=== PATIENT | female | born 1935 | race Caucasian/White ===

== ENCOUNTER → 2018-10-05 | Outpatient (CLI) | payer MEDICARE ==
[~2018-10-05] MED LIST: ASPI81TA85 PO; ATEN25TA PO; CYAN100050 PO; SPIR-10 PO
[2018-10-05 13:37] LABS: HEMATOCRIT 43.1 % (36.0-47.0); HEMOGLOBIN 13.9 g/dl (12.0-15.5); MEAN CORPUSCULAR HEMOGLOBIN 29.3 pg (27.0-33.0); MEAN CORPUSCULAR HGB CONC 32.3 g/dl (32.0-36.5); MEAN CORPUSCULAR VOLUME 90.9 fl (80.0-96.0); PLATELET COUNT, AUTOMATED 229 10^3/uL (150-450); RED BLOOD COUNT 4.74 10^6/uL (4.00-5.40); WHITE BLOOD COUNT 8.4 10^3/uL (4.0-10.0)
[2018-10-05 13:40] LABS: ABG BASE EXCESS -4.6 (-2.0-2.0); ABG HCO3 18.2 MEQ/L (22.0-26.0); ABG O2 SATURATION 99.1 % (95.0-99.0); ABG PARTIAL PRESSURE CO2 27.8 mmHg (35.0-45.0); ABG PARTIAL PRESSURE O2 134.9 mmHg (75.0-100.0); ABG STANDARD HCO3 20.8 MEQ/L (22.0-26.0); ABG pH (ARTERIAL) 7.433 UNITS (7.350-7.450)
[2018-10-05 13:47] LABS: INR 1.13; PROTHROMBIN TIME 14.2 SECONDS (11.8-14.0)
[2018-10-05 13:48] LABS: PARTIAL THROMBOPLASTIN TIME 34.9 SECONDS (25.0-38.4)
[2018-10-05 13:56] LABS: CALCIUM LEVEL 9.2 MG/DL (8.8-10.2); CREATININE FOR GFR 1.13 MG/DL (0.55-1.30); GLOMERULAR FILTRATION RATE 49.2 (>32); POTASSIUM SERUM 4.3 MEQ/L (3.5-5.1)
--- NOTE | 2018-10-05 15:14 | REP ---
CHEST X-RAY: Two views. HISTORY: Mediastinoscopy. No comparison imaging. FINDINGS: Left hemidiaphragm is slightly elevated. There is linear fibrosis in the left base above this. The lungs are otherwise well inflated and clear. Pleural angles are sharp. Heart size is normal. There are degenerative changes in the thoracic spine. IMPRESSION: Slightly elevated left hemidiaphragm. Otherwise no acute disease. Electronically Signed by Tomas Singletary MD 10/05/2018 04:39 P
--- NOTE | 2018-10-05 15:51 | ECGEPIP ---
[facility] Test Date: 2018-10-05 Pat Name: ANGELICA FLYNN Department: Room: - Gender: Female Commission Clerk: : [id number] Requested By: Ramirez Catalan Order Number: [id number] Reading MD: Trixie Nix Measurements Intervals [place] Rate: 63 P: PA: -1 QRS: 4 QRSD: 79 T: 266 QT: 425 QTc: 436 Interpretive Statements ATRIAL FIBRILLATION POSSIBLE RIGHT VENTRICULAR CONDUCTION DELAY SEPTAL MYOCARDIAL INFARCTION, PROBABLY OLD MODERATE T-WAVE ABNORMALITY, CONSIDER INFEROLATERAL ISCHEMIA no PRIOR Electronically Signed on 10-05-2018 15:50:49 EDT by Trixie Nix
== END ==
LOC: M ADMPAT 12:57
PROVIDERS: ATTEND Thoracic Surgery (Cardiothoracic Vascular Surgery)
DX: I48.92 Unspecified atrial flutter (principal); Z01.810 Encounter for preprocedural cardiovascular examination

== ENCOUNTER 2018-10-12 06:46 | Day surgery (SDC) | payer MEDICARE ==
[2018-10-05 13:52] VITALS: BP 129/84
[~2018-10-12] VITALS: Ht 167.6 cm; Wt 80.3 kg
[~2018-10-12 06:46] MED LIST changes: +LIDOCAINE 1% MDV 20ML VIAL SQ PRN
[2018-10-12] MEDS ORDERED: MUPIROCIN 2% OINT 22 GM TUBE TOP ONE (07:00)
[2018-10-12] MEDS ORDERED: LR 1,000 ML IV ONE (07:00)
[2018-10-12] MEDS ORDERED: THROMBIN SOLN 20,000 UNITS KIT As Ordered ONE (07:26)
[2018-10-12] MEDS ORDERED: CETACAINE SPRAY 5GM As Ordered ONE (07:27)
[2018-10-12] MEDS ORDERED: EPINEPHrine 1MG/10ML SYRINGE 1.5IN As Ordered ONE (07:27)
[2018-10-12] MEDS ORDERED: BUPIVACAINE LIPOSOME/PF 1.3% 20ML VIAL (13.3MG/ML)(EXPAREL)(C9290 PER1MG) As Ordered ONE (07:27)
[2018-10-12] MEDS ORDERED: METOCLOPRAMIDE INJ 10MG/2ML VIAL (J2765) As Ordered ONE (09:12)
[2018-10-12] MEDS ORDERED: ETOMIDATE INJ 20MG/10ML VIAL As Ordered ONE (09:12)
[2018-10-12] MEDS ORDERED: fentaNYL 100 MCG/2 ML INJECTION (J3010) As Ordered ONE (09:12)
[2018-10-12] MEDS ORDERED: PROPOFOL 200 MG/20 ML VIAL As Ordered ONE (09:12)
[2018-10-12] MEDS ORDERED: SUGAMMADEX SODIUM 500 MG/5 ML VIAL (BRIDION) As Ordered ONE (09:12)
[2018-10-12] MEDS ORDERED: LIDOCAINE 2% INJ 100 MG/5 ML SDV (FOR ANES.) As Ordered ONE (09:12)
[2018-10-12] MEDS ORDERED: dexameTHASONE 4 MG/ML 1ML VIAL (J1100) As Ordered ONE (09:12)
[2018-10-12] MEDS ORDERED: ONDANSETRON 4MG/2ML VIAL (J2405) As Ordered ONE (09:12)
[2018-10-12] MEDS ORDERED: ROCURONIUM BROMIDE 50 MG/5 ML VIAL As Ordered ONE (09:12)
[2018-10-12] MEDS ORDERED: LABETALOL HCL 100 MG/20 ML VIAL As Ordered ONE (09:26)
[2018-10-12] MEDS ORDERED: fentaNYL 100 MCG/2 ML INJECTION (J3010) IV PRN (10:30)
[2018-10-12] MEDS ORDERED: LR 1,000 ML IV SCH (10:30)
[2018-10-12] MEDS ORDERED: oxyCODONE 5MG TAB PO PRN (10:30)
[2018-10-12] MEDS ORDERED: ONDANSETRON 4MG/2ML VIAL (J2405) IV PRN (10:30)
[2018-10-12] MEDS: LABETALOL HCL 100 MG/20 ML VIAL IV PRN ×3 (10:32→11:01)
[2018-10-12] MEDS ORDERED: NORCO, ANEXSIA 5/325MG TABLET (HYDROcodone/ACETAMINOPHEN) PO PRN (11:00)
[2018-10-12 11:01] VITALS: BP 189/88
[2018-10-12 11:50] VITALS: BP 141/76
--- NOTE | 2018-10-13 14:31 | RO ---
DATE OF PROCEDURE: 10/12/2018 PREPROCEDURE DIAGNOSIS: Mediastinal lymphadenopathies. POSTPROCEDURE DIAGNOSIS: Non-necrotizing granulomas against sarcoidosis. PROCEDURE: Mediastinoscopy and bronchoscopy. SURGEON: Ramirez Soto MD DREDGE WORKER: ANESTHESIA: FINDINGS: Bronchoscopy revealed a normal branching tracheobronchial tree. There were scant secretions. There were no intrabronchial lesions. There was no indentation exterior to the trachea. The mediastinoscopy revealed numerous nodes, which one was quite large near the celine bifurcation. This was gently teased out and was removed in toto. Further dissection showed non-necrotizing granulomas. DESCRIPTION OF PROCEDURE: Under satisfactory general anesthesia and single lumen tube endotracheal intubation, the bronchoscope was passed into the tracheobronchial tree. There were no endobronchial lesions seen. Each segment and subsegment were thoroughly inspected. There were scant secretions. The patient was then prepped and draped in the usual sterile fashion and a suprasternal notch incision was made. It was carried down to the subcutaneous tissue and the strap muscles were divided. The trachea could be palpated and the rings felt. A dissecting finger could be placed down the trachea palpating the innominate artery and the arch of the aorta. The scope was inserted and was cleared from the trachea. A rather large node could be seen near the bifurcation and just adjacent to the azygos vein. It was noticed quite mobile and could be gently teased out. As it was I could pull it out and I had pulled out in toto. It was sent for frozen section with the above results. There was one paratracheal vein, which was bleeding and a hemoclip was placed, which stopped the bleeding. The wound was then packed with thrombin and Gelfoam and the strap muscles were reapproximated by use of #3-0 running Vicryl suture as was the subcutaneous tissue, and the skin was closed with running #4-0 Monocryl subcuticular suture. The wound was infiltrated with Exparel. The patient tolerated the procedure well and left the operating room in satisfactory condition for the recovery room.
== END 2018-10-12 12:15 | disposition home or self-care (01) ==
LOC: M SDC 06:46 → EDUNIT# 08:30 → M SDC 12:15
PROVIDERS: ATTEND Thoracic Surgery (Cardiothoracic Vascular Surgery)
DX: D86.9 Sarcoidosis, unspecified (principal); R06.02 Shortness of breath; I48.91 Unspecified atrial fibrillation; I10 Essential (primary) hypertension; Z79.82 Long term (current) use of aspirin; Z79.899 Other long term (current) drug therapy; Z91.013 Allergy to seafood; Z91.041 Radiographic dye allergy status; Z85.038 Personal history of other malignant neoplasm of large intestine; Z85.3 Personal history of malignant neoplasm of breast
CPT/HCPCS: 31622; 36415; 39402; 86850; 86900; 86901; 88305; 88312; 88331; C9290; J0690; J1100; J2405; J2765; J3010

== ENCOUNTER → 2018-10-27 | Outpatient (CLI) | payer MEDICARE ==
[~2018-10-27] MED LIST changes: -LIDOCAINE 1% MDV 20ML VIAL SQ PRN
[2018-10-27 17:58] LABS: BASO # 0.1 10^3/uL (0.0-0.2); BASO % 0.4 % (0.0-1.0); EOS # 0.2 10^3/uL (0.0-0.50); EOS % 2.1 % (0.0-3.0); HEMATOCRIT 37.3 % (36.0-47.0); LYMPH # 1.6 10^3/uL (1.5-4.5); LYMPH % 13.4 % (24.0-44.0); MEAN CORPUSCULAR HEMOGLOBIN 27.7 pg (27.0-33.0); MEAN CORPUSCULAR HGB CONC 32.2 g/dl (32.0-36.5); MEAN CORPUSCULAR VOLUME 86.1 fl (80.0-96.0); MONO # 0.6 10^3/uL (0.0-0.8); MONO % 5.5 % (0.0-5.0); NEUTROPHILS # 8.9 10^3/uL (1.8-7.7); NEUTROPHILS % 76.1 % (36.0-66.0); PLATELET COUNT, AUTOMATED 457 10^3/uL (150-450); RED BLOOD COUNT 4.33 10^6/uL (4.00-5.40); WHITE BLOOD COUNT 11.7 10^3/uL (4.0-10.0)
[2018-10-27 18:15] LABS: ALBUMIN 2.3 GM/DL (3.2-5.2); BILIRUBIN,DIRECT 0.9 MG/DL (0.0-0.2); BILIRUBIN,TOTAL 1.4 MG/DL (0.2-1.0); CALCIUM LEVEL 8.7 MG/DL (8.8-10.2); CREATININE FOR GFR 1.13 MG/DL (0.55-1.30); GLOMERULAR FILTRATION RATE 49.2 (>32); POTASSIUM SERUM 3.8 MEQ/L (3.5-5.1); TOTAL PROTEIN 7.4 GM/DL (6.4-8.2)
[2018-10-27 18:24] LABS: TOTAL 25(OH) VITAMIN D 8.4 NG/ML (30.0-100.0)
[2018-11-01 00:07] LABS: VITAMIN D 1,25 DIHYDROXY 61.4 pg/mL (19.9-79.3)
== END ==
LOC: M SMT 15:03
PROVIDERS: ATTEND Internal Medicine Pulmonary Disease
DX: D86.1 Sarcoidosis of lymph nodes (principal); Z79.899 Other long term (current) drug therapy